=== PATIENT | male | born 1960 | race African-American/Black ===

== ENCOUNTER 2021-06-13 10:13 | Day surgery (SDC) | payer OTHER ==
[~2021-06-13] VITALS: Ht 182.9 cm; Wt 106.3 kg
[~2021-06-13 10:13] MED LIST: ADVIL200 MG PO; LOPRESSOR 550 MG/TAB PO; MELAT3MGTAB; PROCARDIA XL 6060 MG PO; VIAGRA100 M1 PO; VITAMIN B-1000 MCG/T PO
[2021-06-13] MEDS ORDERED: SYNTHROID0.05 MG/TA PO (10:58)
[2021-06-13] MEDS ORDERED: DESYREL 100MG100 MG PO (11:00)
[2021-06-13] MEDS ORDERED: CYMBALTA 60MG60 MG (11:01)
[2021-06-13] MEDS ORDERED: MINIPRESS 1M1 MG/CAP PO (11:02)
[2021-06-13] MEDS ORDERED: MINIPRESS2 MG (11:02)
[2021-06-13] MEDS ORDERED: MINIPRESS 5M5 MG/CAP PO (11:02)
[2021-06-13 11:21] VITALS: BP 136/91; PULSE 56; TEMP 98.4
[2021-06-13] MEDS ORDERED: NORCO 325 MG-51 TAB PO (14:26)
[2021-06-13 15:33] VITALS: BP 143/83; PULSE 67; TEMP 97.7
[2021-06-13 15:45] VITALS: BP 142/87; PULSE 66
[2021-06-13 16:00] VITALS: BP 137/99; PULSE 67
[2021-06-13 16:15] VITALS: BP 146/89; PULSE 73
[2021-06-13 16:40] VITALS: BP 144/83; PULSE 73
[2021-06-16] MEDS ORDERED: ASPIRIN 81M81 MG/TA2 PO (21:23)
== END 2021-06-13 17:05 | disposition home or self-care (01) ==
LOC: SDCO 10:13
DX: K43.0 Incisional hernia with obstruction, without gangrene (principal); Z12.11 Encounter for screening for malignant neoplasm of colon; I10 Essential (primary) hypertension; E07.9 Disorder of thyroid, unspecified; G47.33 Obstructive sleep apnea (adult) (pediatric); F17.210 Nicotine dependence, cigarettes, uncomplicated; Z85.46 Personal history of malignant neoplasm of prostate; Z79.899 Other long term (current) drug therapy; Z79.890 Hormone replacement therapy
CPT/HCPCS: C1781; J0690; J1170; J1885; J2405; J2704; J3010; J7120